=== PATIENT | male | born 1990 | race American Indian/Alaskan Native ===

== ENCOUNTER 2017-01-08 16:52 | Emergency (ER) | payer OTHER ==
[2017-01-08 17:41] LABS: Urine Drugs of Abuse Note Disclamer
[2017-01-08 17:52] LABS: Bilirubin,Urine NEG (Negative); Blood,Urine NEG (Negative); Ketones,Urine NEG (Negative); Leukocyte Esterase,Urine TR (Negative); Nitrite,Urine NEG (Negative); Protein,Urine <15 mg/dL mg/dL (Negative); Urobilinogen,Urine < 2.0 mg/dL (<2.0)
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
[2017-01-08 18:04] LABS: Basophils % (Auto) 0.8 % (0.0-1.8); Eosinophils % (Auto) 1.9 % (0.0-4.3); Hematocrit 44.2 % (35.5-45.6); Mean Corpuscular HGB Conc 34 % (32-34); Mean Corpuscular Hemoglobin 29 pg (28-32); Mean Corpuscular Volume 87 fl (84-94); Platelet Count 277 K/mm3 (140-440); Red Cell Distribution Width 14.1 % (13.2-15.2); White Blood Count 5.4 K/mm3 (4.5-11.0)
[2017-01-08 18:23] LABS: Anion Gap 17 mmol/L; Blood Urea Nitrogen 5 mg/dL (9-20); Calcium 9.1 mg/dL (8.4-10.2); Carbon Dioxide 24 mmol/L (22-30); Chloride 100.9 mmol/L (98-107); Glucose 102 mg/dL (75-100); Potassium 3.8 mmol/L (3.6-5.0); Sodium 138 mmol/L (137-145)
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
--- NOTE | 2017-01-09 15:20 | Event Note ---
Date: 01/09/17 Vital signs are reviewed and appreciated. Psychiatric consultation is pending. At this point in time, patient is pending psychiatric placement. Vital Signs 01/08/17 01/08/17 01/08/17 17:27 17:30 17:31 Temperature 99.6 F 99.6 F Pulse Rate 117 H 117 H Respiratory 24 24 24 Rate Blood Pressure 135/90 Blood Pressure 135/90 [Right] O2 Sat by Pulse 98 98 98 Oximetry 01/08/17 01/09/17 20:00 07:40 Temperature 99.1 F 97.8 F Pulse Rate 73 56 L Respiratory 16 18 Rate Blood Pressure Blood Pressure 114/58 113/78 [Right] O2 Sat by Pulse 95 97 Oximetry
[2017-01-10 09:21] VITALS: BP 103/61
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
--- NOTE | 2017-01-10 15:58 | Emergency Department Report ---
Blank Doc - Documentation Documentation: Patient has been reevaluated by psychiatry. Form 1013 will be rescinded. Patient will be referred for outpatient treatment. Patient will be discharged at this time.
== END 2017-01-10 17:00 | disposition home or self-care (01) ==
LOC: ED 16:52 → EEVIPCON 16:52 → ED 01-10 17:00
DX: R45.851 Suicidal ideations (principal); F17.200 Nicotine dependence, unspecified, uncomplicated
CPT/HCPCS: 36415; 80048; 80307; 81001; 85025; 99284; G0480; 80320